=== PATIENT | male | born 1995 | race Two or more races ===

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

== ENCOUNTER 2017-01-07 16:11 | Emergency (ER) | payer OTHER ==
[2017-01-07 16:40] VITALS: BP 108/50; PULSE 55; TEMP 98; BMI 23.6
== END 2017-01-07 18:52 | disposition left against medical advice (07) ==
LOC: JERFT 16:11
DX: Z53.21 Procedure and treatment not carried out due to patient leaving prior to being seen by health care provider (principal)
CPT/HCPCS: 99281-25

== ENCOUNTER 2020-12-10 17:03 | Emergency (ER) | payer OTHER ==
[2020-12-10 17:40] VITALS: BP 117/70; PULSE 62; TEMP 98.2; BMI 25.8
[2020-12-10] MEDS ORDERED: DEXAMETHASONE SOD PHOSPHATE 10 MG/1 ML VIAL IM ONE (17:56)
[2020-12-10] MEDS ORDERED: DEXAMETHASONE SOD PHOSPHATE 10 MG/1 ML VIAL ONE (18:04)
== END 2020-12-10 19:49 | disposition home or self-care (01) ==
LOC: JERFT 17:03
PROC: 3E023GC Introduction of Other Therapeutic Substance into Muscle, Percutaneous Approach (ICD-10-PCS; principal; 2020-12-10)
DX: G51.0 Bell's palsy (principal)
CPT/HCPCS: 70486-TC; 99284-25; J1100

== ENCOUNTER 2023-02-23 17:32 | Emergency (ER) | payer OTHER ==
[2023-02-23 17:40] VITALS: BP 125/65; PULSE 72; RESP 18; TEMP 98.2; BMI 24.9
[2023-02-23 19:19] LABS: EPI CELLS 11 /uL (0-25.1); HYALINE CASTS 1 /uL (0-3.1); URINE APPEARANCE CLEAR; URINE BACTERIA 24 /uL (0-1359); URINE BILIRUBIN 1+ (NEGATIVE); URINE COLOR DK YELLOW; URINE GLUCOSE (UA) NEGATIVE (NEGATIVE); URINE KETONE 1+ (NEGATIVE); URINE LEUK ESTERASE TRACE (NEGATIVE); URINE NITRITE NEGATIVE (NEGATIVE); URINE PROTEIN TRACE (NEGATIVE); URINE RBC 19 /uL (0-23.9); URINE WBC 30 /uL (0-25.8)
[2023-02-23] MEDS ORDERED: CIPROFLOXACIN 500 MG TABLET (RESTRICTED TO ID) PO ONE (20:46)
== END 2023-02-23 21:06 | disposition home or self-care (01) ==
LOC: JER 17:32
DX: R10.31 Right lower quadrant pain (principal); N39.0 Urinary tract infection, site not specified; N45.1 Epididymitis
CPT/HCPCS: 36415; 76870-TC; 81003; 87491; 87591; 87661; 99284-25